=== PATIENT | female | born 1940 | race Caucasian/White ===

== ENCOUNTER 2023-04-11 08:41 | Inpatient (IN) | payer OTHER ==
[~2023-04-11] VITALS: Ht 157.4 cm; Wt 90.7 kg
[2023-04-11 08:56] VITALS: BP 128/48
[2023-04-11 09:20] LABS: BASO % 0.4 % (0.0-1.0); EOS # 0.1 10*3/uL (0.0-0.4); EOS % 0.9 % (1.0-4.0); HEMATOCRIT 36.2 % (37.0-47.0); LYMPH # 0.9 10*3/uL (1.3-4.4); LYMPH % 9.1 % (27.0-41.0); MEAN CELL VOLUME 84.6 fl (81.0-99.0); MEAN CORPUSCULAR HGB 25.2 pg (27.0-31.0); MEAN CORPUSCULAR HGB CONC 29.8 g/dl (33.0-37.0); MEAN PLATELET VOLUME 9.9 fl (9.6-12.3); MONO # 0.6 10*3/uL (0.1-1.0); MONO % 5.8 % (3.0-9.0); NEUT # 8.1 10*3/uL (2.3-7.9); NEUT % 83.4 % (47.0-73.0); PLATELET COUNT AUTOMATED 212 10*3/uL (130-400); RED BLOOD COUNT 4.28 10*6/uL (4.10-5.10); RED CELL DISTRI WIDTH 15.8 % (0-14.5); WHITE BLOOD COUNT 9.7 10*3/uL (4.8-10.8)
[2023-04-11 09:30] LABS: ACT PARTIAL THROMBO TIME 32.8 SECONDS (20.0-32.1); INTERNATIONAL NORM RATIO 1.1 (2.0-3.5)
[2023-04-11 09:43] LABS: POTASSIUM 3.6 mmol/L (3.4-5.1); TOTAL PROTEIN 6.7 gm/dL (6.0-8.0)
[2023-04-11 10:15] LABS: BILIRUBIN Negative (Negative); BLOOD 1+ (Negative); CLARITY Clear (Clear); COLOR Yellow (Yellow); GLUCOSE 2+ (Negative); KETONE Trace (Negative); LEUKO ESTERASE 2+ (Negative); NITRITE Negative (Negative); PH 5.5 (4.5-8.0)
[2023-04-11 10:33] LABS: BACTERIA 3+; WBC 21-30 wbc/hpf (0-5)
[2023-04-11 10:34] LABS: RBC 21-30 rbc/hpf (0-2)
[2023-04-11] MEDS ORDERED: Metolazone5 MG PO (10:49)
[2023-04-11] MEDS ORDERED: LEVOTHYROXINE125 MCG PO (10:49)
[2023-04-11] MEDS ORDERED: PANTOPRAZOLE SO20 MG PO (10:49)
[2023-04-11] MEDS ORDERED: JARDIANCE25 MG PO (10:50)
[2023-04-11] MEDS ORDERED: BUMETANIDE1 MG PO (10:50)
[2023-04-11] MEDS ORDERED: ATORVASTATIN CA20 M1 PO (10:50)
[2023-04-11] MEDS ORDERED: DILTIAZEM 24HR300 MG PO (10:50)
[2023-04-11] MEDS ORDERED: ATENOLOL100 M1 PO (10:50)
[2023-04-11] MEDS ORDERED: PRAMIPEXOLE DIHY1 MG PO (10:52)
[2023-04-11] MEDS ORDERED: ELIQUIS5 M1 PO ×2 (10:52→14:17)
[2023-04-11 13:05] VITALS: BP 130/59
[2023-04-11] MEDS ORDERED: METFORMIN HYDR500 MG PO (13:41)
[2023-04-11] MEDS ORDERED: LISINOPRIL20 MG PO (13:41)
[2023-04-11] MEDS ORDERED: POTASSIUM CHLO20 ME4 PO (14:30)
[2023-04-11] MEDS ORDERED: DULCOLAX STOOL100 M1 PO (14:36)
[2023-04-11 17:37] VITALS: BP 102/76
[2023-04-11 20:00] VITALS: BP 110/55
[2023-04-11] MEDS ORDERED: HYDROCODONE-AC1 EACH PO (20:36)
[2023-04-12] VITALS: BP 111/50
[2023-04-12 07:07] LABS: BASO # 0.1 10*3/uL (0.0-0.1); BASO % 0.9 % (0.0-1.0); EOS # 0.2 10*3/uL (0.0-0.4); EOS % 2.7 % (1.0-4.0); HEMATOCRIT 33.8 % (37.0-47.0); LYMPH # 1.1 10*3/uL (1.3-4.4); LYMPH % 19.3 % (27.0-41.0); MEAN CELL VOLUME 86.9 fl (81.0-99.0); MEAN CORPUSCULAR HGB 25.2 pg (27.0-31.0); MEAN PLATELET VOLUME 10.2 fl (9.6-12.3); MONO # 0.5 10*3/uL (0.1-1.0); MONO % 8.8 % (3.0-9.0); NEUT # 3.8 10*3/uL (2.3-7.9); NEUT % 67.8 % (47.0-73.0); PLATELET COUNT AUTOMATED 178 10*3/uL (130-400); RED BLOOD COUNT 3.89 10*6/uL (4.10-5.10); RED CELL DISTRI WIDTH 15.7 % (0-14.5); WHITE BLOOD COUNT 5.6 10*3/uL (4.8-10.8)
[2023-04-12 07:33] LABS: ALKALINE PHOSPHATASE 69 U/L (46-116); CHLORIDE 101 mmol/L (98-107); CHOLESTEROL 91 mg/dL (<200); LDL CHOLESTEROL 47 mg/dL (9-159); POTASSIUM 4.2 mmol/L (3.4-5.1); TRIGLYCERIDES 76 mg/dl (<150)
[2023-04-12 07:34] LABS: VITAMIN D, 25-HYDROXY 30.7 ng/mL (30-100)
[2023-04-12 07:37] LABS: BUN 23 mg/dl (9-23)
[2023-04-12 07:39] LABS: SGPT/ALT < 7 U/L (10-49)
[2023-04-12 08:00] VITALS: BP 120/50
[2023-04-12 12:00] VITALS: BP 134/58
[2023-04-12 16:00] VITALS: BP 115/60
[2023-04-12 20:00] VITALS: BP 112/80
[2023-04-13] VITALS: BP 129/67
[2023-04-13 08:00] VITALS: BP 134/71
[2023-04-13 08:00] LABS: BASO # 0.1 10*3/uL (0.0-0.1); BASO % 0.9 % (0.0-1.0); EOS # 0.1 10*3/uL (0.0-0.4); EOS % 2.2 % (1.0-4.0); HEMATOCRIT 33.9 % (37.0-47.0); LYMPH # 1.1 10*3/uL (1.3-4.4); LYMPH % 16.6 % (27.0-41.0); MEAN CELL VOLUME 85.8 fl (81.0-99.0); MEAN CORPUSCULAR HGB 25.3 pg (27.0-31.0); MEAN CORPUSCULAR HGB CONC 29.5 g/dl (33.0-37.0); MONO # 0.6 10*3/uL (0.1-1.0); MONO % 8.7 % (3.0-9.0); NEUT # 4.5 10*3/uL (2.3-7.9); NEUT % 70.8 % (47.0-73.0); PLATELET COUNT AUTOMATED 207 10*3/uL (130-400); RED BLOOD COUNT 3.95 10*6/uL (4.10-5.10); RED CELL DISTRI WIDTH 15.3 % (0-14.5); WHITE BLOOD COUNT 6.3 10*3/uL (4.8-10.8)
[2023-04-13 08:22] LABS: POTASSIUM 3.8 mmol/L (3.4-5.1)
[2023-04-13 12:00] VITALS: BP 122/50
[2023-04-13 16:00] VITALS: BP 119/58
[2023-04-13 20:00] VITALS: BP 124/56
[2023-04-14] VITALS: BP 141/94
[2023-04-14 07:42] LABS: BASO # 0.1 10*3/uL (0.0-0.1); EOS # 0.2 10*3/uL (0.0-0.4); EOS % 2.7 % (1.0-4.0); LYMPH # 1.2 10*3/uL (1.3-4.4); LYMPH % 16.2 % (27.0-41.0); MEAN CELL VOLUME 85.2 fl (81.0-99.0); MEAN CORPUSCULAR HGB 25.1 pg (27.0-31.0); MEAN CORPUSCULAR HGB CONC 29.4 g/dl (33.0-37.0); MEAN PLATELET VOLUME 10.3 fl (9.6-12.3); MONO # 0.6 10*3/uL (0.1-1.0); MONO % 8.3 % (3.0-9.0); NEUT # 5.2 10*3/uL (2.3-7.9); NEUT % 70.8 % (47.0-73.0); PLATELET COUNT AUTOMATED 203 10*3/uL (130-400); RED BLOOD COUNT 3.99 10*6/uL (4.10-5.10); RED CELL DISTRI WIDTH 15.3 % (0-14.5); WHITE BLOOD COUNT 7.4 10*3/uL (4.8-10.8)
[2023-04-14 08:00] VITALS: BP 115/53
[2023-04-14 12:00] VITALS: BP 107/60
[2023-04-14 16:00] VITALS: BP 117/51
[2023-04-14 20:00] VITALS: BP 125/63
[2023-04-15] VITALS: BP 129/68
[2023-04-15 07:18] LABS: BASO # 0.1 10*3/uL (0.0-0.1); BASO % 0.9 % (0.0-1.0); EOS # 0.2 10*3/uL (0.0-0.4); EOS % 2.8 % (1.0-4.0); HEMATOCRIT 34.8 % (37.0-47.0); LYMPH # 1.2 10*3/uL (1.3-4.4); MEAN CELL VOLUME 84.9 fl (81.0-99.0); MEAN CORPUSCULAR HGB 24.6 pg (27.0-31.0); MEAN PLATELET VOLUME 10.2 fl (9.6-12.3); MONO # 0.7 10*3/uL (0.1-1.0); MONO % 8.9 % (3.0-9.0); NEUT # 5.2 10*3/uL (2.3-7.9); NEUT % 70.3 % (47.0-73.0); PLATELET COUNT AUTOMATED 203 10*3/uL (130-400); RED CELL DISTRI WIDTH 15.4 % (0-14.5); WHITE BLOOD COUNT 7.4 10*3/uL (4.8-10.8)
[2023-04-15 08:00] VITALS: BP 130/70
[2023-04-15] MEDS ORDERED: SEPTDS PO (11:36)
[2023-04-15 12:00] VITALS: BP 127/68
== END 2023-04-15 13:24 | disposition home health service (06) | DRG 757 ==
LOC: ED 08:41 → EDHOLD 13:04 → 5E 13:04 → EDHOLD 13:04 → 5E 16:12
PROVIDERS: Emergency Medicine; Student in an Organized Health Care Education/Training Program; ADMIT Student in an Organized Health Care Education/Training Program; ATTEND Student in an Organized Health Care Education/Training Program
DX: N76.2 Acute vulvitis (principal); N17.0 Acute kidney failure with tubular necrosis; J96.11 Chronic respiratory failure with hypoxia; L03.311 Cellulitis of abdominal wall; K57.92 Diverticulitis of intestine, part unspecified, without perforation or abscess without bleeding; E44.0 Moderate protein-calorie malnutrition; N39.0 Urinary tract infection, site not specified; I48.91 Unspecified atrial fibrillation; E03.9 Hypothyroidism, unspecified; E78.5 Hyperlipidemia, unspecified; I10 Essential (primary) hypertension; K21.9 Gastro-esophageal reflux disease without esophagitis; G25.81 Restless legs syndrome; Z98.51 Tubal ligation status; Z96.652 Presence of left artificial knee joint; Z87.891 Personal history of nicotine dependence; D64.9 Anemia, unspecified; R79.82 Elevated C-reactive protein (CRP); R79.89 Other specified abnormal findings of blood chemistry; E11.65 Type 2 diabetes mellitus with hyperglycemia; Z68.36 Body mass index [BMI] 36.0-36.9, adult

== ENCOUNTER 2023-06-14 15:11 | Inpatient (IN) | payer OTHER ==
[~2023-06-14] VITALS: Ht 157.4 cm; Wt 94.3 kg
[~2023-06-14 15:11] MED LIST: ATENOLOL100 M1 PO; ATORVASTATIN CA20 M1 PO; BUMETANIDE1 MG PO; DILTIAZEM 24HR300 MG PO; DULCOLAX STOOL100 M1 PO; ELIQUIS5 M1 PO; HYDROCODONE-AC1 EACH PO; JARDIANCE25 MG PO; LEVOTHYROXINE125 MCG PO; LISINOPRIL20 MG PO; METFORMIN HYDR500 MG PO; Metolazone5 MG PO; PANTOPRAZOLE SO20 MG PO; POTASSIUM CHLO20 ME4 PO; PRAMIPEXOLE DIHY1 MG PO; SEPTDS PO
[2023-06-14 15:18] VITALS: BP 123/61
[2023-06-14 16:40] LABS: BASO # 0.1 10*3/uL (0.0-0.1); BASO % 0.5 % (0.0-1.0); EOS % 0.4 % (1.0-4.0); HEMATOCRIT 37.6 % (37.0-47.0); LYMPH # 1.2 10*3/uL (1.3-4.4); LYMPH % 11.4 % (27.0-41.0); MEAN CELL VOLUME 85.3 fl (81.0-99.0); MEAN CORPUSCULAR HGB 25.2 pg (27.0-31.0); MEAN CORPUSCULAR HGB CONC 29.5 g/dl (33.0-37.0); MEAN PLATELET VOLUME 9.9 fl (9.6-12.3); MONO # 0.6 10*3/uL (0.1-1.0); MONO % 5.3 % (3.0-9.0); NEUT # 8.4 10*3/uL (2.3-7.9); NEUT % 81.9 % (47.0-73.0); PLATELET COUNT AUTOMATED 210 10*3/uL (130-400); RED BLOOD COUNT 4.41 10*6/uL (4.10-5.10); RED CELL DISTRI WIDTH 16.6 % (0-14.5); WHITE BLOOD COUNT 10.3 10*3/uL (4.8-10.8)
[2023-06-14 17:11] LABS: POTASSIUM 3.5 mmol/L (3.4-5.1); TOTAL PROTEIN 6.4 gm/dL (6.0-8.0)
[2023-06-14 18:41] LABS: BILIRUBIN Negative (Negative); BLOOD Negative (Negative); CLARITY Clear (Clear); COLOR Yellow (Yellow); GLUCOSE 1+ (Negative); KETONE Negative (Negative); LEUKO ESTERASE Trace (Negative); NITRITE Negative (Negative); SPECIFIC GRAVITY 1.015 (1.001-1.030)
[2023-06-14 18:57] LABS: BACTERIA 4+
[2023-06-14 19:51] VITALS: BP 131/43
[2023-06-15] VITALS: BP 126/84; BP 129/82
[2023-06-15 05:54] LABS: POTASSIUM 4.2 mmol/L (3.4-5.1)
[2023-06-15 06:16] LABS: BASO % 0.6 % (0.0-1.0); EOS # 0.1 10*3/uL (0.0-0.4); EOS % 1.3 % (1.0-4.0); HEMATOCRIT 35.1 % (37.0-47.0); LYMPH # 1.2 10*3/uL (1.3-4.4); MEAN CELL VOLUME 86.5 fl (81.0-99.0); MEAN CORPUSCULAR HGB 25.1 pg (27.0-31.0); MEAN CORPUSCULAR HGB CONC 29.1 g/dl (33.0-37.0); MEAN PLATELET VOLUME 10.7 fl (9.6-12.3); MONO # 0.4 10*3/uL (0.1-1.0); MONO % 6.3 % (3.0-9.0); NEUT # 4.6 10*3/uL (2.3-7.9); NEUT % 72.5 % (47.0-73.0); PLATELET COUNT AUTOMATED 186 10*3/uL (130-400); RED BLOOD COUNT 4.06 10*6/uL (4.10-5.10); RED CELL DISTRI WIDTH 16.3 % (0-14.5); WHITE BLOOD COUNT 6.3 10*3/uL (4.8-10.8)
[2023-06-15 08:00] VITALS: BP 138/71
[2023-06-15 12:00] VITALS: BP 121/90
[2023-06-15 16:00] VITALS: BP 114/54
[2023-06-15 20:00] VITALS: BP 111/77
[2023-06-16] VITALS: BP 132/70
[2023-06-16 07:11] LABS: BASO # 0.1 10*3/uL (0.0-0.1); BASO % 0.8 % (0.0-1.0); EOS # 0.1 10*3/uL (0.0-0.4); EOS % 1.9 % (1.0-4.0); HEMATOCRIT 37.1 % (37.0-47.0); LYMPH # 1.4 10*3/uL (1.3-4.4); LYMPH % 22.8 % (27.0-41.0); MEAN CELL VOLUME 86.5 fl (81.0-99.0); MEAN CORPUSCULAR HGB 24.9 pg (27.0-31.0); MEAN CORPUSCULAR HGB CONC 28.8 g/dl (33.0-37.0); MEAN PLATELET VOLUME 10.2 fl (9.6-12.3); MONO # 0.5 10*3/uL (0.1-1.0); MONO % 7.9 % (3.0-9.0); NEUT # 4.2 10*3/uL (2.3-7.9); NEUT % 66.3 % (47.0-73.0); PLATELET COUNT AUTOMATED 188 10*3/uL (130-400); RED BLOOD COUNT 4.29 10*6/uL (4.10-5.10); RED CELL DISTRI WIDTH 16.3 % (0-14.5); WHITE BLOOD COUNT 6.3 10*3/uL (4.8-10.8)
[2023-06-16 07:31] LABS: POTASSIUM 4.2 mmol/L (3.4-5.1)
[2023-06-16 08:00] VITALS: BP 138/86
[2023-06-16] MEDS ORDERED: OMNICEF300 MG PO (11:06)
[2023-06-16] MEDS ORDERED: FLUCONAZOLE100 MG PO (11:06)
[2023-06-16 12:00] VITALS: BP 130/70
[2023-06-16] MEDS ORDERED: NYSTATIN CREAM15 GM T (14:24)
== END 2023-06-16 15:52 | disposition home or self-care (01) | DRG 602 ==
LOC: ED 15:11 → EDHOLD 18:59 → 4E 21:22
PROVIDERS: Emergency Medicine; Internal Medicine; Nurse Practitioner Family; Student in an Organized Health Care Education/Training Program; ADMIT Student in an Organized Health Care Education/Training Program; ATTEND Student in an Organized Health Care Education/Training Program
DX: L03.311 Cellulitis of abdominal wall (principal); N17.0 Acute kidney failure with tubular necrosis; J96.11 Chronic respiratory failure with hypoxia; N39.0 Urinary tract infection, site not specified; B37.2 Candidiasis of skin and nail; N18.32 Chronic kidney disease, stage 3b; I48.91 Unspecified atrial fibrillation; I12.9 Hypertensive chronic kidney disease with stage 1 through stage 4 chronic kidney disease, or unspecified chronic kidney disease; E11.22 Type 2 diabetes mellitus with diabetic chronic kidney disease; N18.9 Chronic kidney disease, unspecified; J44.9 Chronic obstructive pulmonary disease, unspecified; Z96.652 Presence of left artificial knee joint; K21.9 Gastro-esophageal reflux disease without esophagitis; E78.5 Hyperlipidemia, unspecified; G25.81 Restless legs syndrome; E03.9 Hypothyroidism, unspecified; Z98.51 Tubal ligation status; Z87.891 Personal history of nicotine dependence; Z82.49 Family history of ischemic heart disease and other diseases of the circulatory system; Z79.899 Other long term (current) drug therapy; Z83.430 Family history of elevated lipoprotein(a); Z82.3 Family history of stroke; Z99.81 Dependence on supplemental oxygen

== ENCOUNTER 2024-03-01 15:01 | Inpatient (IN) | payer OTHER, MEDICAID ==
[~2024-03-01] VITALS: Ht 157.5 cm; Wt 92.2 kg
[~2024-03-01 15:01] MED LIST changes: -BUMETANIDE1 MG PO; +BUMETANIDE2 MG PO; +CIPRO500 MG PO; +FLONASE ALLERG9.9 ML NAS; +FLUCONAZOLE100 MG PO; +METRONIDAZOLE500 M1 PO; +MIRAPEX1 MG PO; +NYSTATIN CREAM15 GM T; +Nizoral 2%15 GM T; +OMNICEF300 MG PO; +VITAMIN D350 MC2 PO
[2024-03-01 15:11] VITALS: BP 109/57
[2024-03-01 15:39] LABS: BASO # 0.1 10*3/uL (0.0-0.1); BASO % 0.7 % (0.0-1.0); EOS # 0.1 10*3/uL (0.0-0.4); EOS % 1.7 % (1.0-4.0); LYMPH # 1.2 10*3/uL (1.3-4.4); LYMPH % 17.4 % (27.0-41.0); MEAN CELL VOLUME 88.6 fl (81.0-99.0); MEAN CORPUSCULAR HGB 27.5 pg (27.0-31.0); MEAN CORPUSCULAR HGB CONC 31.1 g/dl (33.0-37.0); MONO # 0.5 10*3/uL (0.1-1.0); MONO % 7.2 % (3.0-9.0); NEUT # 5.1 10*3/uL (2.3-7.9); NEUT % 72.6 % (47.0-73.0); PLATELET COUNT AUTOMATED 193 10*3/uL (130-400); RED BLOOD COUNT 4.29 10*6/uL (4.10-5.10); RED CELL DISTRI WIDTH 14.5 % (0-14.5); WHITE BLOOD COUNT 7.1 10*3/uL (4.8-10.8)
[2024-03-01 15:56] LABS: ACT PARTIAL THROMBO TIME 28.6 SECONDS (20.0-32.1)
[2024-03-01 15:58] LABS: POTASSIUM 3.8 mmol/L (3.4-5.1); TOTAL PROTEIN 6.9 gm/dL (6.0-8.0)
[2024-03-01] MEDS ORDERED: ACETAMINOPHEN 325 MG TAB PO PRN (19:35)
[2024-03-01] MEDS ORDERED: Ondansetron Hydrochloride 4 MG/2 ML VIAL IV PRN (19:35)
[2024-03-01] MEDS ORDERED: Magnesium Hydroxide 30 ML UDC PO PRN (19:35)
[2024-03-01] MEDS ORDERED: BISACODYL 10 MG SUPP R PRN (19:35)
[2024-03-01] MEDS ORDERED: Acetaminophen/Hydrocodone 5 MG/325 MG TABLET PO PRN (19:35)
[2024-03-01] MEDS ORDERED: BISACODYL 5 MG TAB PO PRN (19:35)
[2024-03-01] MEDS ORDERED: ACETAMINOPHEN 650 MG SUPP R PRN (19:35)
[2024-03-01 19:47] VITALS: BP 105/62
[2024-03-01] MEDS ORDERED: SODIUM CHLORIDE 0.9% 1,000 ML IV ONE (19:55)
[2024-03-01] MEDS ORDERED: DEXTROSE 10 % IN WATER 250 ML IV PRN (21:20)
[2024-03-01] MEDS ORDERED: INSULIN LISPRO 1 UNIT/0.01 ML SQ SCH (22:00)
[2024-03-01] MEDS ORDERED: PRAMIPEXOLE DIHYDROCHLORIDE 0.25 MG PO SCH (22:55)
[2024-03-01] MEDS ORDERED: KETOCONAZOLE 15 GM TUBE T PRN (23:15)
[2024-03-02] VITALS (7 sets, daily range): BP systolic 102–140; BP diastolic 41–87
[2024-03-02] MEDS ORDERED: APIXABAN 5 MG TAB ONE (00:12)
[2024-03-02 04:09] LABS: BASO # 0.1 10*3/uL (0.0-0.1); BASO % 0.8 % (0.0-1.0); EOS # 0.1 10*3/uL (0.0-0.4); EOS % 2.2 % (1.0-4.0); HEMATOCRIT 35.5 % (37.0-47.0); LYMPH # 1.3 10*3/uL (1.3-4.4); LYMPH % 19.9 % (27.0-41.0); MEAN CORPUSCULAR HGB 27.1 pg (27.0-31.0); MEAN CORPUSCULAR HGB CONC 30.4 g/dl (33.0-37.0); MEAN PLATELET VOLUME 10.5 fl (9.6-12.3); MONO # 0.5 10*3/uL (0.1-1.0); NEUT # 4.5 10*3/uL (2.3-7.9); NEUT % 68.8 % (47.0-73.0); PLATELET COUNT AUTOMATED 156 10*3/uL (130-400); RED BLOOD COUNT 3.99 10*6/uL (4.10-5.10); RED CELL DISTRI WIDTH 14.4 % (0-14.5); WHITE BLOOD COUNT 6.5 10*3/uL (4.8-10.8)
[2024-03-02 04:33] LABS: FREE T4 1.11 ng/dl (0.89-1.76); POTASSIUM 3.4 mmol/L (3.4-5.1); TOTAL PROTEIN 5.7 gm/dL (6.0-8.0)
[2024-03-02 04:44] LABS: VITAMIN D, 25-HYDROXY 67.6 ng/mL (30-100)
[2024-03-02] MEDS ORDERED: Pantoprazole Sodium 20 MG TAB PO SCH (06:00)
[2024-03-02] MEDS ORDERED: Levothyroxine Sodium 125 MCG TAB PO SCH (06:00)
[2024-03-02] MEDS ORDERED: CYANOCOBALAMIN 500 MCG TAB PO SCH (07:30)
[2024-03-02] MEDS ORDERED: LISINOPRIL 20 MG TAB PO SCH (10:00)
[2024-03-02] MEDS ORDERED: APIXABAN 5 MG TAB PO SCH (10:00)
[2024-03-02] MEDS ORDERED: DILTIAZEM CD 300 MG CAP PO SCH (10:00)
[2024-03-02 10:27] LABS: BILIRUBIN Negative (Negative); BLOOD Negative (Negative); CLARITY Clear (Clear); COLOR Yellow (Yellow); GLUCOSE Negative (Negative); KETONE Negative (Negative); LEUKO ESTERASE Trace (Negative); NITRITE Negative (Negative); PH 7.5 (4.5-8.0); SPECIFIC GRAVITY 1.015 (1.001-1.030); UROBILINOGEN 0.2 E.U./dl (0.0-1.0)
[2024-03-02 11:15] LABS: BACTERIA TRACE
[2024-03-02] MEDS ORDERED: ATORVASTATIN CALCIUM 20 MG TAB PO SCH (18:00)
[2024-03-02] MEDS ORDERED: Pramipexole Dihydrochloride 0.5 MG TAB PO SCH (22:00)
[2024-03-03] VITALS: BP 113/46
[2024-03-03 05:49] LABS: POTASSIUM 4.1 mmol/L (3.4-5.1)
[2024-03-03 05:58] LABS: BASO % 0.4 % (0.0-1.0); EOS # 0.1 10*3/uL (0.0-0.4); EOS % 2.5 % (1.0-4.0); HEMATOCRIT 34.5 % (37.0-47.0); LYMPH # 1.1 10*3/uL (1.3-4.4); LYMPH % 19.9 % (27.0-41.0); MEAN CELL VOLUME 89.1 fl (81.0-99.0); MEAN CORPUSCULAR HGB 27.4 pg (27.0-31.0); MEAN CORPUSCULAR HGB CONC 30.7 g/dl (33.0-37.0); MEAN PLATELET VOLUME 10.9 fl (9.6-12.3); MONO # 0.5 10*3/uL (0.1-1.0); MONO % 9.1 % (3.0-9.0); NEUT # 3.8 10*3/uL (2.3-7.9); NEUT % 67.9 % (47.0-73.0); PLATELET COUNT AUTOMATED 144 10*3/uL (130-400); RED BLOOD COUNT 3.87 10*6/uL (4.10-5.10); RED CELL DISTRI WIDTH 14.6 % (0-14.5); WHITE BLOOD COUNT 5.6 10*3/uL (4.8-10.8)
[2024-03-03 08:00] VITALS: BP 127/59
[2024-03-03 11:54] VITALS: BP 142/62
== END 2024-03-03 16:13 | disposition home or self-care (01) | DRG 683 ==
LOC: ED 15:01 → EDHOLD 18:29 → 4E 18:29 → EDHOLD 19:52 → 4E 03-02 15:59
PROVIDERS: Emergency Medicine; Student in an Organized Health Care Education/Training Program; ADMIT Family Medicine; ATTEND Family Medicine
DX: N17.9 Acute kidney failure, unspecified (principal); I13.0 Hypertensive heart and chronic kidney disease with heart failure and stage 1 through stage 4 chronic kidney disease, or unspecified chronic kidney disease; J98.11 Atelectasis; G90.9 Disorder of the autonomic nervous system, unspecified; D64.9 Anemia, unspecified; K21.9 Gastro-esophageal reflux disease without esophagitis; N18.32 Chronic kidney disease, stage 3b; J44.9 Chronic obstructive pulmonary disease, unspecified; I50.9 Heart failure, unspecified; I48.91 Unspecified atrial fibrillation; E11.22 Type 2 diabetes mellitus with diabetic chronic kidney disease; K57.30 Diverticulosis of large intestine without perforation or abscess without bleeding; E78.5 Hyperlipidemia, unspecified; E87.8 Other disorders of electrolyte and fluid balance, not elsewhere classified; I07.1 Rheumatic tricuspid insufficiency; K44.9 Diaphragmatic hernia without obstruction or gangrene; E66.9 Obesity, unspecified; E89.0 Postprocedural hypothyroidism; G25.81 Restless legs syndrome; Z96.652 Presence of left artificial knee joint; Z87.891 Personal history of nicotine dependence; Z87.440 Personal history of urinary (tract) infections; Z79.899 Other long term (current) drug therapy; Z79.01 Long term (current) use of anticoagulants; Z79.2 Long term (current) use of antibiotics; Z68.37 Body mass index [BMI] 37.0-37.9, adult; Z99.81 Dependence on supplemental oxygen

== ENCOUNTER 2024-11-12 13:06 | Inpatient (IN) | payer OTHER, MEDICAID ==
[~2024-11-12] VITALS: Ht 157.5 cm; Wt 89.9 kg
[2024-11-12 13:32] VITALS: BP 133/55
[2024-11-12 14:02] LABS: BASO # 0.1 10*3/uL (0.0-0.1); BASO % 0.4 % (0.0-1.0); EOS % 0.2 % (1.0-4.0); HEMATOCRIT 37.3 % (37.0-47.0); MEAN CELL VOLUME 89.9 fl (81.0-99.0); MEAN PLATELET VOLUME 10.5 fl (9.6-12.3); MONO # 0.9 10*3/uL (0.1-1.0); MONO % 6.9 % (3.0-9.0); NEUT # 11.1 10*3/uL (2.3-7.9); NEUT % 84.8 % (47.0-73.0); PLATELET COUNT AUTOMATED 206 10*3/uL (130-400); RED BLOOD COUNT 4.15 10*6/uL (4.10-5.10); RED CELL DISTRI WIDTH 14.5 % (0-14.5); WHITE BLOOD COUNT 13.1 10*3/uL (4.8-10.8)
[2024-11-12 14:18] LABS: POTASSIUM 4.2 mmol/L (3.4-5.1)
[2024-11-12] MEDS ORDERED: FUROSEMIDE 40 MG/4 ML VIAL IV ONE (14:25)
[2024-11-12] MEDS ORDERED: Magnesium Hydroxide 30 ML UDC PO PRN (15:15)
[2024-11-12] MEDS ORDERED: TEMAZEPAM 15 MG CAP PO PRN (15:15)
[2024-11-12] MEDS ORDERED: Ondansetron Hydrochloride 4 MG/2 ML VIAL IV PRN (15:15)
[2024-11-12] MEDS ORDERED: Acetaminophen/Hydrocodone 5 MG/325 MG TABLET PO PRN (15:15)
[2024-11-12] MEDS ORDERED: BISACODYL 5 MG TAB PO PRN (15:15)
[2024-11-12] MEDS ORDERED: ACETAMINOPHEN 325 MG TAB PO PRN (15:15)
[2024-11-12 16:00] VITALS: BP 152/69
[2024-11-12] MEDS ORDERED: Doxycycline Hyclate 100 MG in SODIUM CHLORIDE 0.9% 250 ML IV SCH (16:00)
[2024-11-12] MEDS ORDERED: ELIQUIS2.5 M1 PO (17:42)
[2024-11-12] MEDS ORDERED: ATENOLOL25 MG PO (17:43)
[2024-11-12] MEDS ORDERED: PREGABALIN50 MG PO (17:44)
[2024-11-12] MEDS ORDERED: GABAPENTIN100 M2 PO (17:45)
[2024-11-12 20:00] VITALS: BP 166/74
[2024-11-12 21:30] VITALS: BP 118/47
[2024-11-12] MEDS ORDERED: PREGABALIN 50 MG CAP PO SCH (22:00)
[2024-11-12] MEDS ORDERED: APIXABAN 5 MG TAB PO SCH (22:00)
[2024-11-12] MEDS ORDERED: Pramipexole Dihydrochloride 0.5 MG TAB PO SCH (22:00)
[2024-11-12] MEDS ORDERED: BUMETANIDE 1 MG/4 ML VIAL IV SCH (22:00)
[2024-11-13] VITALS: BP 155/75
[2024-11-13] MEDS ORDERED: Pantoprazole Sodium 20 MG TAB PO SCH (06:00)
[2024-11-13] MEDS ORDERED: Levothyroxine Sodium 125 MCG TAB PO SCH (06:00)
[2024-11-13 06:44] LABS: POTASSIUM 3.4 mmol/L (3.4-5.1); TOTAL PROTEIN 6.7 gm/dL (6.0-8.0); VITAMIN D, 25-HYDROXY 49.2 ng/mL (30-100)
[2024-11-13 06:48] LABS: BASO % 0.4 % (0.0-1.0); EOS % 0.2 % (1.0-4.0); HEMATOCRIT 33.3 % (37.0-47.0); MEAN CELL VOLUME 89.5 fl (81.0-99.0); MEAN CORPUSCULAR HGB 26.3 pg (27.0-31.0); MEAN CORPUSCULAR HGB CONC 29.4 g/dl (33.0-37.0); MEAN PLATELET VOLUME 11.4 fl (9.6-12.3); MONO # 0.6 10*3/uL (0.1-1.0); MONO % 6.9 % (3.0-9.0); NEUT # 7.1 10*3/uL (2.3-7.9); NEUT % 79.8 % (47.0-73.0); PLATELET COUNT AUTOMATED 183 10*3/uL (130-400); RED BLOOD COUNT 3.72 10*6/uL (4.10-5.10); RED CELL DISTRI WIDTH 14.6 % (0-14.5)
[2024-11-13 08:00] VITALS: BP 112/80
[2024-11-13] MEDS ORDERED: LISINOPRIL 20 MG TAB PO SCH (10:00)
[2024-11-13] MEDS ORDERED: Enoxaparin Sodium 40 MG/0.4 ML SYR SC SCH (10:00)
[2024-11-13] MEDS ORDERED: POTASSIUM CHLORIDE 20 MEQ TAB PO SCH (10:00)
[2024-11-13] MEDS ORDERED: ATENOLOL 25 MG TAB PO SCH (10:00)
[2024-11-13 12:00] VITALS: BP 107/40
[2024-11-13 12:27] LABS: BILIRUBIN Negative (Negative); BLOOD Trace-Lysed (Negative); CLARITY Cloudy (Clear); COLOR Yellow (Yellow); GLUCOSE Negative (Negative); KETONE Negative (Negative); LEUKO ESTERASE Trace (Negative); NITRITE Negative (Negative); UROBILINOGEN 0.2 E.U./dl (0.0-1.0)
[2024-11-13 12:35] LABS: BACTERIA 2+
[2024-11-13] MEDS ORDERED: FOAM BANDAGE HEEL T ONE (13:34)
[2024-11-13] MEDS ORDERED: HEEL PROTECTOR DEVICE ONE (13:34)
[2024-11-13] MEDS ORDERED: FOAM BANDAGE 5X5 T ONE (13:34)
[2024-11-13 16:00] VITALS: BP 119/63
[2024-11-13] MEDS ORDERED: ATORVASTATIN CALCIUM 20 MG TAB PO SCH (18:00)
[2024-11-13 20:00] VITALS: BP 139/81; BP 142/51
[2024-11-13] MEDS ORDERED: POVIDONE IODINE 10% T SCH (22:00)
[2024-11-13] MEDS ORDERED: Menthol/Zinc Oxide 4 GM THIN T SCH (22:00)
[2024-11-13] MEDS ORDERED: NYSTATIN 15 GM BOT T SCH (22:00)
[2024-11-14] VITALS (7 sets, daily range): BP systolic 108–135; BP diastolic 48–87
[2024-11-14 06:19] LABS: BASO % 0.6 % (0.0-1.0); EOS # 0.1 10*3/uL (0.0-0.4); EOS % 1.8 % (1.0-4.0); HEMATOCRIT 35.1 % (37.0-47.0); MEAN CELL VOLUME 90.5 fl (81.0-99.0); MEAN CORPUSCULAR HGB 25.8 pg (27.0-31.0); MEAN CORPUSCULAR HGB CONC 28.5 g/dl (33.0-37.0); MEAN PLATELET VOLUME 11.3 fl (9.6-12.3); MONO # 0.6 10*3/uL (0.1-1.0); NEUT % 70.1 % (47.0-73.0); PLATELET COUNT AUTOMATED 193 10*3/uL (130-400); RED BLOOD COUNT 3.88 10*6/uL (4.10-5.10); RED CELL DISTRI WIDTH 14.7 % (0-14.5); WHITE BLOOD COUNT 7.1 10*3/uL (4.8-10.8)
[2024-11-14 07:10] LABS: POTASSIUM 3.9 mmol/L (3.4-5.1)
[2024-11-14] MEDS ORDERED: FOAM BANDAGE HEEL T ONE (13:25)
[2024-11-14] MEDS ORDERED: FOAM BANDAGE 5X5 T ONE (13:25)
[2024-11-15] VITALS: BP 123/50
[2024-11-15 05:06] LABS: POTASSIUM 3.4 mmol/L (3.4-5.1)
[2024-11-15 06:42] LABS: BASO % 0.8 % (0.0-1.0); EOS # 0.1 10*3/uL (0.0-0.4); EOS % 2.7 % (1.0-4.0); HEMATOCRIT 32.4 % (37.0-47.0); MEAN CELL VOLUME 89.3 fl (81.0-99.0); MEAN CORPUSCULAR HGB 26.2 pg (27.0-31.0); MEAN CORPUSCULAR HGB CONC 29.3 g/dl (33.0-37.0); MEAN PLATELET VOLUME 10.8 fl (9.6-12.3); MONO # 0.5 10*3/uL (0.1-1.0); MONO % 10.1 % (3.0-9.0); NEUT # 3.6 10*3/uL (2.3-7.9); NEUT % 68.8 % (47.0-73.0); PLATELET COUNT AUTOMATED 191 10*3/uL (130-400); RED BLOOD COUNT 3.63 10*6/uL (4.10-5.10); RED CELL DISTRI WIDTH 14.6 % (0-14.5); WHITE BLOOD COUNT 5.2 10*3/uL (4.8-10.8)
[2024-11-15 08:00] VITALS: BP 145/59
[2024-11-15] MEDS ORDERED: CYANOCOBALAMIN 500 MCG TAB PO SCH (10:00)
[2024-11-15] MEDS ORDERED: POVIDONE IODINE 10% T SCH (10:00)
[2024-11-15 12:00] VITALS: BP 140/82
[2024-11-15] MEDS ORDERED: Meropenem 50 ML IV SCH (12:00)
[2024-11-15] MEDS ORDERED: BENZONATATE 100 MG CAP PO PRN (15:55)
[2024-11-15 16:00] VITALS: BP 139/76
[2024-11-15] MEDS ORDERED: SEPTDS PO (19:04)
[2024-11-15] MEDS ORDERED: CEPHALEXIN500 M1 PO (19:04)
[2024-11-15 20:00] VITALS: BP 147/65
[2024-11-16] VITALS: BP 118/75
[2024-11-16 05:18] LABS: BUN 31 mg/dl (9-23); CHLORIDE 93 mmol/L (98-107); POTASSIUM 3.5 mmol/L (3.4-5.1)
[2024-11-16 06:08] LABS: BASO % 0.7 % (0.0-1.0); EOS # 0.2 10*3/uL (0.0-0.4); EOS % 2.6 % (1.0-4.0); HEMATOCRIT 36.3 % (37.0-47.0); MEAN CORPUSCULAR HGB 26.2 pg (27.0-31.0); MEAN CORPUSCULAR HGB CONC 29.5 g/dl (33.0-37.0); MEAN PLATELET VOLUME 10.8 fl (9.6-12.3); MONO # 0.5 10*3/uL (0.1-1.0); MONO % 8.7 % (3.0-9.0); NEUT # 3.9 10*3/uL (2.3-7.9); NEUT % 68.9 % (47.0-73.0); PLATELET COUNT AUTOMATED 222 10*3/uL (130-400); RED BLOOD COUNT 4.08 10*6/uL (4.10-5.10); RED CELL DISTRI WIDTH 14.6 % (0-14.5); WHITE BLOOD COUNT 5.7 10*3/uL (4.8-10.8)
[2024-11-16 08:00] VITALS: BP 144/69
[2024-11-16] MEDS ORDERED: Sulfamethoxazole/Trimethopri 1 TAB TAB PO ONE (10:00)
[2024-11-16 12:00] VITALS: BP 132/82
[2024-11-16 16:00] VITALS: BP 114/64
[2024-11-16 20:00] VITALS: BP 126/85
[2024-11-16] MEDS ORDERED: FOAM BANDAGE 5X5 T ONE (21:23)
[2024-11-17] VITALS: BP 127/50; BP 131/91
[2024-11-17 05:24] LABS: BUN 34 mg/dl (9-23); CHLORIDE 93 mmol/L (98-107); POTASSIUM 4.2 mmol/L (3.4-5.1)
[2024-11-17 06:00] LABS: BASO # 0.1 10*3/uL (0.0-0.1); BASO % 0.7 % (0.0-1.0); EOS # 0.2 10*3/uL (0.0-0.4); EOS % 3.1 % (1.0-4.0); HEMATOCRIT 37.1 % (37.0-47.0); MEAN CELL VOLUME 87.5 fl (81.0-99.0); MEAN CORPUSCULAR HGB 25.9 pg (27.0-31.0); MEAN CORPUSCULAR HGB CONC 29.6 g/dl (33.0-37.0); MEAN PLATELET VOLUME 10.7 fl (9.6-12.3); MONO # 0.7 10*3/uL (0.1-1.0); MONO % 9.4 % (3.0-9.0); NEUT # 5.3 10*3/uL (2.3-7.9); NEUT % 72.9 % (47.0-73.0); PLATELET COUNT AUTOMATED 223 10*3/uL (130-400); RED BLOOD COUNT 4.24 10*6/uL (4.10-5.10); RED CELL DISTRI WIDTH 14.5 % (0-14.5); WHITE BLOOD COUNT 7.3 10*3/uL (4.8-10.8)
[2024-11-17 08:00] VITALS: BP 123/63
[2024-11-17 12:00] VITALS: BP 102/50
[2024-11-17] MEDS ORDERED: CEPHALEXIN500 M1 PO (12:01)
== END 2024-11-17 14:30 | disposition home health service (06) | DRG 602 ==
LOC: ED 13:06 → 4E 14:24 → EDHOLD 14:24 → 4E 15:13
PROVIDERS: Emergency Medicine; Internal Medicine; Nurse Practitioner Family; Student in an Organized Health Care Education/Training Program; ADMIT Family Medicine; ATTEND Family Medicine
DX: L03.116 Cellulitis of left lower limb (principal); I50.33 Acute on chronic diastolic (congestive) heart failure; J96.21 Acute and chronic respiratory failure with hypoxia; I13.0 Hypertensive heart and chronic kidney disease with heart failure and stage 1 through stage 4 chronic kidney disease, or unspecified chronic kidney disease; Z16.12 Extended spectrum beta lactamase (ESBL) resistance; N39.0 Urinary tract infection, site not specified; I48.21 Permanent atrial fibrillation; L03.115 Cellulitis of right lower limb; E83.52 Hypercalcemia; N18.32 Chronic kidney disease, stage 3b; E78.5 Hyperlipidemia, unspecified; B95.4 Other streptococcus as the cause of diseases classified elsewhere; G25.81 Restless legs syndrome; E11.22 Type 2 diabetes mellitus with diabetic chronic kidney disease; Z66 Do not resuscitate; B96.20 Unspecified Escherichia coli [E. coli] as the cause of diseases classified elsewhere; E89.0 Postprocedural hypothyroidism; B96.29 Other Escherichia coli [E. coli] as the cause of diseases classified elsewhere; Z82.3 Family history of stroke; Z82.49 Family history of ischemic heart disease and other diseases of the circulatory system; Z79.899 Other long term (current) drug therapy; Z98.51 Tubal ligation status